=== PATIENT | male | born 1990 | race Caucasian/White ===

== ENCOUNTER 2024-11-25 14:06 | Inpatient (IN) | payer MEDICAID, OTHER ==
[~2024-11-25] VITALS: Ht 177.8 cm; Wt 98.9 kg
--- NOTE | 2024-11-25 14:47 | ED.PDOC ---
History of Present Illness HPI Comments Mr. Odell is a 34 year old male with no previous medical history, who presents today complaint of right arm pain. The patient states that yesterday he was lifting a trash can into the back of his truck when he felt a sudden tear in right bicep. The patient states he immediately had onset of intense bicep pain described as sharp, non-radiating, 10/10 intensity, associated with bicep deformity, and decreased range of motion. He denies any loss of sensation, changes in color of the skin, and continued swelling. The patient was seen at [facility] where an Xray and ultrasound were done showing no signs of tear (patient has presented documents from this encounter). He additi onally states he went [facility] where he had a CT scan of the arm done where he states he was told no tear could be seen either, he does not present documentation of this, and he would need an MRI for further evaluation. On evaluation in the ED, the patient has decreased range of motion, inability to supinate his arm or extend his arm due to pain. Chief Complaint: Upper Extremity Time Seen by MD: 14:14 Primary Care Provider: NONE Allergies: Coded Allergies: NO KNOWN ALLERGIES (Unverified , 10/14/12) Information Source: Patient Mode of Arrival: Ambulatory Severity: Moderate Timing: Days Duration: Since onset Past Medical History PAST MEDICAL HISTORY: Denies Surgical History: Denies all surgeries Family History Family History: Family hx of heart mesha Social History Smoker: Non-Smoker Alcohol: Denies ETOH Use Drugs: Marijuana (Refers he smokes a bowl of marijuana every 2 days) Lives In: Home Constitutional: denies: chills, diaphoresis, fatigue, fever, malaise, sweats, weakness, others EENTM: denies: blurred vision, double vision, ear bleeding, ear discharge, ear drainage, ear pain, ear ringing, eye pain, eye redness, hearing loss, mouth pain, mouth swelling, nasal discharge, nose bleeding, nose congestion, nose pain, photophobia, tearing, throat pain, throat swelling, voice changes, others Respiratory: denies: cough, hemoptysis, orthopnea, SOB at rest, shortness of breath, SOB with excertion, stridor, wheezing, others Cardiovascular: denies: chest pain, dizzy spells, diaphoresis, Dyspnea on exertion, edema, irregular heart beat, left arm pain, lightheadedness, palpitations, PND, syncope, others Gastrointestinal: denies: abdomen distended, abdominal pain, constipated, diarrhea, dysphagia, difficulty swallowing, hematemesis, melena, nausea, poor appetite, poor fluid intake, rectal bleeding, rectal pain, vomiting, others Genitourinary: denies: burning, dysuria, flank pain, frequency, hematuria, incontinence, pain, urgency, others Neurological: denies: dizziness, fainting, headache, left sided numbness, left sided weakness, numbness, paresthesia, pre-existing deficit, right sided numbness, right sided weakness, seizure, speech problems, tingling, tremors, weakness, others Musculoskeletal: reports: muscle pain, muscle stiffness, others (Loss of range of motion, swelling ) Endocrine: denies: excessive hunger, excessive sweating, excessive thirst, excessive urination, flushing, intolerance to cold, intolerance to heat, unexplained weight gain, unexplained weight loss, others Physical Exam General Appearance: Normal HEENT: Normal ENT Inspection, PERRL/EOMI, Pharynx Normal Neck: Full Range of Motion, Non-Tender, Normal Inspection Respiratory: Lungs Clear, No Accessory Muscle Use, No Respiratory Distress, Normal Breath Sounds Cardiovascular: No Edema, No Murmur, No Gallop, Normal Peripheral Pulses, Regular Rate/Rhythm Breast Exam: Deferred Gastrointestinal: No Organomegaly, Non Tender, Normal Bowel Sounds, Soft Genitalia: Deferred Pelvic: Deferred Rectal: Deferred Extremities: Decreased range of motion, Swelling, Tender, Other (Right bicep proximal deformation, pain on palpation, localized swelling, unable to extend right arm, unable to supinate, pain on palpation ) Neurologic: Normal Affect, Normal Mood, No Sensory Deficits Cerebellar Function: NOT DONE Reflexes: NOT DONE Skin: Normal Color Lymphatic: No Adenopathy Was a procedure done? Was a procedure done?: No Differential Dx Considerations may include: Right distal bicep tendon tear, right distal bicep tendonitis, muscle strain, compartment syndrome X-Ray, Labs, Meds, VS Vital Signs Date Time Temp Pulse Resp B/P (MAP) Pulse Ox O2 Delivery O2 Flow Rate FiO2 11/25/24 18:57 93 17 161/103 (122) 98 11/25/24 14:08 98.2 85 18 163/101 98 98.2 Time of 1ST Reevaluation: 18:30 Reevaluation 1ST: Unchanged Patient Education/Counseling: Diagnosis, Treatment Family Education/Counseling: No Family Present SEPSIS Sepsis Screen Date sepsis recognized/suspect: Nov 25, 2024 Time Sepsis recognized/suspect: 1410 Recent Procedure: No On Antibiotic Therapy: No Respiratory Rate >20: No Heart Rate >90: No Temp<36 C (96.8 F) or >38.3 C: No SBP <90 or MAP <65 mmHG: No New Acute Mental Status Change: No Is the patient on CPAP, BIPAP,: No Physician Orders * Orthopedic Consult (11/25/24 15:16) Vital Signs Date Time Temp Pulse Resp B/P (MAP) Pulse Ox O2 Delivery O2 Flow Rate FiO2 11/25/24 18:57 93 17 161/103 (122) 98 11/25/24 14:08 98.2 85 18 163/101 98 98.2 Departure 1 Departure Time of Disposition: 19:50 (The patient presented with right arm pain and deformity concerning for bicep tendon rupture, biceps tendinitis, muscle strain, fracture, compartment syndrome. The patient was evaluated by Orthopedics who recommend admission for possible definitive treatment due to risk of loss of function.) Impression: Primary Impression: Biceps muscle tear Disposition: 30 STILL A PATIENT Admit to: Med Surg Condition: Stable Additional Instructions: The patient presented for severe right arm pain and deformity secondary to lifting a heavy trash can and feeling a rip in his right bicep The patient was seen at [facility] where a ultrasound and x-ray were done that showed no findings, documentation from this visit was reviewed. The patient states he was seen at [facility] where a CT scan of the right arm was performed showing no acute findings, no documentation has been provided for this. The patient was evaluated by Orthopedics who recommended that due to the patient's inability to follow up and risk of losing functionality of his dominant arm if not intervened within the next 10 days, they recommend admission for MRI and definitive treatment. Critical Care Note Critical Care Time?: No Stability Stability form required: ROBIN Barrera RESIDENT Nov 25, 2024 14:47
--- NOTE | 2024-11-25 20:38 | DVHINCON2 ---
Consult Note Consult Consult Note History of Present Illness: The patient presents with a two-day history of acute right elbow pain following lifting a heavy trash can into his truck. He reports feeling a sudden snap sensation at the anterior aspect of the elbow, followed by pain and swelling. He was evaluated in the Emergency Department [place] [facility] , No fracture noted , However he presented to ER due to worsening of Right bicep insertion pain. Reports pain at worse is 10/10 with any supination, Flexion and 5-6/10 at rest. No numbmness/tingling or other joint pain reported by patient. Physical Examination: Inspection: Mild swelling noted over the antecubital fossa. No significant ecchymosis or deformity appreciated. Palpation: Tenderness to palpation at the distal biceps insertion near the radial tuberosity. Mild distal biceps contour defect noted. Strength Testing: Weakness with resisted supination of the forearm. Weakness with resisted elbow flexion on the right side. Special Tests: Hook Test: Distal biceps palpable but mild laxed Biceps Squeeze Test: unable to perform 2/2 pain worsening ROM right elbow grossly intact Neurovascular: Sensation intact throughout the upper extremity. Radial pulse palpable and symmetric. Exam Impression: Findings are consistent with a partial versus complete distal biceps tendon tear. Assessment: Right elbow pain concern for distal biceps tendon rupture (partial vs complet e). Plan: RECS TO ER/INPATIENT TEAM 1. Obtain Right elbow Xray and MRI w/o contrast of the right elbow without contrast to evaluate the integrity of the distal biceps tendon. 2. If MRI confirms a complete distal biceps tendon tear, admit the patient for orthopedic surgical evaluation and management. 3. Continue immobilization in sling and pain control as needed. 4. If patient is admitted Ortho will followup once MRI is completed with treatment plan , Otherwise followup with Orthopedic as Outpatient. 5. Discussed case with block mason Surgeon Dr. Hatch who agrees with plan Plan discussed with: Patient, Other (ER Provider) Visit Coding Surgery Date of Service if different f: Nov 25, 2024 Billing Provider: NATALIYA QUINN Surgery Visit Codes: [id number] - INP CONSULT <55 MIN NATALIYA QUINN Nov 25, 2024 20:38
--- NOTE | 2024-11-25 21:22 | DVH ---
CLINICAL INDICATION: right elbow pain TECHNIQUE: 3 radiographic views of the right elbow were obtained. Comparison: None FINDINGS/IMPRESSION: Limited evaluation right elbow without a 90 degree lateral view. Can not exclude joint effusion. No findings to suggest displaced fractures.
[2024-11-25] MEDS ORDERED: TEMAZEPAM 15 MG CAP PO PRN (23:45)
[2024-11-25] MEDS ORDERED: ONDANSETRON HCL 4 MG/2 ML VIAL IV PRN (23:45)
[2024-11-25] MEDS ORDERED: ACETAMINOPHEN 325 MG TAB PO PRN (23:45)
--- NOTE | 2024-11-25 23:45 | DVHHP2 ---
History of Present Illness Reason for Visit: Right arm pain History of Present Illness 34-year-old male presents for evaluation of right arm pain. Patient reports that yesterday while lifting a trash can onto the back of his truck he felt a sudden tear to his right bicep. Since then he has been having sharp pain whenever he attempts to flex his arm or with minimal movement. Denies tingling or numbness to distal arm. Past Medical History Denies Past Surgical History Denies Family History Heart disease Smoke: No ALCOHOL: none Drugs: Marijuana Lives: with Family Review of Systems Review of Systems Review of systems are currently negative otherwise addressed in HPI. Allergies: Coded Allergies: NO KNOWN ALLERGIES (Unverified , 10/14/12) Exam Vital Signs Vital Signs Date Time Temp Pulse Resp B/P (MAP) Pulse Ox O2 Delivery O2 Flow Rate FiO2 11/25/24 22:06 97.8 79 14 140/101 (114) 98 97.8 Exam Gen: 34-year-old male in mild distress Skin: Warm, dry, normal color and texture, no rash. HEENT: Normocephalic atraumatic, mucous membranes moist and pink. Neck: Cervical and supraclavicular nodes normal without enlargement, trachea is midline, thyroid gland is normal without masses. Pulmonary: Clear to auscultation and percussion bilaterally. Cardiac: Regular rate and rhythm. No murmur Abdomen: Soft, nontender, nondistended, bowel sounds present all 4 quadrants, no guarding, no rigidity, no organomegaly. Extremities: No cyanosis, clubbing, right arm(on a sling, pain on palpation, localized swelling, unable to extend right arm, unable to supinate) Neuro: Cranial nerves II through XII grossly intact, normal affect and speech, no focal motor deficits. Labs/Xrays ORDERING PHYSICIAN: NATALIYA QUINN PAC PROCEDURE(s): RELB3 - R ELBOW 3 VIEW XRAY REASON: right elbow pain ORDER NUMBER(s): [id number], ACCESSION NUMBER(s): [id number] CLINICAL INDICATION: right elbow pain TECHNIQUE: 3 radiographic views of the right elbow were obtained. Comparison: None FINDINGS/IMPRESSION: Limited evaluation right elbow without a 90 degree lateral view. Can not exclude joint effusion. No findings to suggest displaced fractures. IS Sepsis Screen Date sepsis recognized/suspect: Nov 25, 2024 Time Sepsis recognized/suspect: 1410 Recent Procedure: No On Antibiotic Therapy: No Respiratory Rate >20: No Heart Rate >90: No Temp<36 C (96.8 F) or >38.3 C: No SBP <90 or MAP <65 mmHG: No New Acute Mental Status Change: No Is the patient on CPAP, BIPAP,: No Physician Orders R Elbow 3 View Xray (11/25/24 20:39) Mri R Elbow Wo Contrast (11/25/24 20:39) Regular Diet (11/26/24 Breakfast) Ketorolac Injection (Toradol Injection) (11/25/24 23:45) Complete Blood Count (11/25/24 23:38) Comprehensive Metabolic Panel (11/25/24 23:38) PTPTT (11/25/24 23:38) Vital Signs Date Time Temp Pulse Resp B/P (MAP) Pulse Ox O2 Delivery O2 Flow Rate FiO2 11/25/24 22:06 97.8 79 14 140/101 (114) 98 97.8 11/25/24 18:57 93 17 161/103 (122) 98 Assessment/Plan Assessment/Plan Assessment Rule out right biceps muscle tear Plan Admit the patient to [facility] to the hospitalist Orthopedic consultation MRI of the right elbow has been ordered and pending Pain management Continue treatment per orders. Plan discussed with: Patient My Orders Orders - [facility] ORELLANA Procedure Category Date Status Time Regular Diet DIET 11/26/24 Verified Breakfast Ketorolac Injection PHA 11/25/24 Verified (Toradol Injection) 23:45 Complete Blood Count LAB 11/25/24 Verified 23:38 Comprehensive LAB 11/25/24 Verified Metabolic Panel 23:38 PTPTT LAB 11/25/24 Verified 23:38 Date of Service: Nov 25, 2024 Billing Provider: MC ORELLANA Common Visit Codes: [id number] INP/OBS CARE (MOD) MC ORELLANA Nov 25, 2024 23:45
[2024-11-25 23:57] LABS: Hematocrit 43.7 % (41.0-53.0); Hemoglobin 14.8 g/dL (13.5-17.5); Mean Corpuscular Hemoglobin 28.3 pg (28.0-32.0); Mean Corpuscular Volume 83.4 fL (80.0-100.0); Nucleated Red Blood Cells % 0.0 %
[2024-11-26 00:12] LABS: Alkaline Phosphatase 75 U/L (46-116); Anion Gap 9 (5-15); BUN/Creatinine Ratio 16.1 (10.0-20.0); Bilirubin, Total 0.5 mg/dL (0.2-1.0); Blood Urea Nitrogen 18 mg/dL (9-23); Calcium 10.0 mg/dL (8.7-10.4); Carbon Dioxide 30 mmol/L (20-31); Chloride 101 mmol/L (98-107); Glucose 100 mg/dL (74-106); Potassium 4.2 mmol/L (3.5-5.1); Sodium 140 mmol/L (136-145); Total Protein 7.7 g/dL (5.7-8.2)
[2024-11-26 00:14] LABS: Alanine Aminotransferase 45 U/L (7-40); Albumin 5.0 g/dL (3.2-4.8)
[2024-11-26 00:33] LABS: INR 1.11 (0.9-1.15); Partial Thromboplastin Time 26.5 SEC (24.5-34.5); Prothrombin Time 11.6 sec (9.3-11.8)
[2024-11-26] MEDS ORDERED: HYDR-4072 PO (02:11)
[2024-11-26] MEDS ORDERED: IBUP-1456 PO (02:11)
[2024-11-26] MEDS: TEMAZEPAM 15 MG CAP PO ONE (03:11)
[2024-11-26] MEDS: LISINOPRIL 5 MG TAB PO ONE (04:23)
[2024-11-26 05:30] VITALS: BP 111/64; PULSE 68; RESP 19; TEMP 97.6; O2SAT 98
[2024-11-26 08:48] VITALS: BP 126/74; PULSE 72; RESP 18; TEMP 97.7; O2SAT 99
--- NOTE | 2024-11-26 10:04 | DVH ---
EXAM: MRI MRI R ELBOW WO CONTRAST HISTORY: Rule out distal bicep tear. TECHNIQUE: Multiplanar, multisequence MRI of the right elbow was performed without contrast. COMPARISON: XY R ELBOW 3 VIEW XRAY on DOS: 11/25/24 FINDINGS: Joint: There is no elbow joint effusion. There is no synovitis or loose body. Bones and articular cartilage: Bone marrow signal is homogenous and unremarkable. No high-grade artic ular cartilage loss. The alignment is within normal limits. Ligaments and tendons: The ulnar collateral ligament is intact. The radial collateral ligament, later al ulnar collateral ligament (LUCL) and annular ligament are intact. The common flexor tendon and com mon extensor tendon origins are intact. There is a full-thickness retracted distal biceps tendon tear . The torn tendon is retracted 5 cm from the radial tuberosity. Brachioradialis and bicipital tendon s are intact. Nerves: The ulnar nerve is normal in signal intensity and caliber and normally located in the cubital tunnel. The medial and radial nerves are intact. Muscles: Regional musculature is preserved in bulk and signal characteristics. Other findings: Diffus e anterior subcutaneous edema in the elbow. IMPRESSION: 1. Full-thickness retracted distal biceps tendon tear. 2. Diffuse anterior subcutaneous edema in the elbow.
[2024-11-26 13:00] VITALS: BP 120/83; PULSE 71; RESP 17; TEMP 98.1; O2SAT 97
--- NOTE | 2024-11-26 15:27 | DVHPN2 ---
Reviewed: H&P Changes from previous H/P or p: No Changes General: Per HPI Objective Vitals Vital Signs Date Time Temp Pulse Resp B/P (MAP) Pulse Ox O2 Delivery O2 Flow Rate FiO2 11/26/24 13:00 98.1 71 17 120/83 (95) 97 98.1 11/26/24 02:07 Room Air* 0 21 Exam Gen: 34-year-old male in mild distress Skin: Warm, dry, normal color and texture, no rash. HEENT: Normocephalic atraumatic, mucous membranes moist and pink. Neck: Cervical and supraclavicular nodes normal without enlargement, trachea is midline, thyroid gland is normal without masses. Pulmonary: Clear to auscultation and percussion bilaterally. Cardiac: Regular rate and rhythm. No murmur Abdomen: Soft, nontender, nondistended, bowel sounds present all 4 quadrants, no guarding, no rigidity, no organomegaly. Extremities: No cyanosis, clubbing, right arm(on a sling, pain on palpation, localized swelling, unable to extend right arm, unable to supinate) Neuro: Cranial nerves II through XII grossly intact, normal affect and speech, no focal motor deficits. Medications Current Medications Medications Dose Ordered Sig/Vandana Route Start Time Stop Time Status Last Admin Dose Admin Ketorolac Tromethamine 15 mg Q6HPRN PRN IV 11/25/24 23:45 11/30/24 23:44 Acetaminophen/ Hydrocodone Bitart 1 tab Q4HP PRN PO 11/25/24 23:45 Temazepam 15 mg QHSP PRN PO 11/25/24 23:45 Ondansetron HCl 4 mg Q4HP PRN IV 11/25/24 23:45 Acetaminophen 650 mg Q6HP PRN PO 11/25/24 23:45 Laboratory Results Laboratory Tests 11/25/24 23:50 Chemistry Test 11/25/24 23:50 Albumin 5.0 g/dL (3.2-4.8) H Calcium Level 10.0 mg/dL (8.7-10.4) Total Protein 7.7 g/dL (5.7-8.2) Coagulation Test 11/25/24 23:50 Prothrombin Time 11.6 sec (9.3-11.8) Prothrombin Time INR 1.11 (0.9-1.15) Activated Partial Thromboplast Time 26.5 SEC (24.5-34.5) LFT Test 11/25/24 23:50 Alanine Aminotransferase (ALT) 45 U/L (7-40) H Alkaline Phosphatase 75 U/L (46-116) Aspartate Amino Transferase (AST) 31 U/L (13-40) Total Bilirubin 0.5 mg/dL (0.2-1.0) Labs and/or images reviewed: Labs reviewed by me, Image(s) reviewed by me Assessment/Plan Assessment/Plan 34-year-old male presents for evaluation of right arm pain. Patient reports that yesterday while lifting a trash can onto the back of his truck he felt a sudden tear to his right bicep. Since then he has been having sharp pain whenever he attempts to flex his arm or with minimal movement. Denies tingling or numbness to distal arm. 11/26: Patient has been seen by ortho, patient does not smoke, he does drink occasionally up to 8 beers per week, no binge drinking, no history of alcohol withdrawals. No signs of cirrhosis. On exam patient had right biceps and bulging, significant tender to palpation. diagnsis: Right biceps tendon rupture Plan: NPO midnight Ortho following, plan for intervention Pain control Dilaudid IV, prn analgesia Med surge Full code Plan discussed with: Patient Date of Service: Nov 26, 2024 Billing Provider: EVELIA GEORGE MD Common Visit Codes: [id number] INP/OBS CARE(HIGH) EVELIA GEORGE MD Nov 26, 2024 15:27
[2024-11-26 17:00] VITALS: BP 126/86; PULSE 75; RESP 18; TEMP 97.9; O2SAT 99
[2024-11-26] MEDS: HYDROcodone-ACET 5/325MG TAB PO PRN (17:05)
[2024-11-26 20:00] VITALS: RESP 16; O2SAT 98
[2024-11-26 21:00] VITALS: BP 134/90; PULSE 69; RESP 16; TEMP 97; O2SAT 98
--- NOTE | 2024-11-26 21:45 | DVHPN2 ---
Progress Note Progress Note Subjective: Patient was evaluated today for follow-up of right distal biceps tendon tear. He was initially seen yesterday for the same complaint, currently inpatient. The patient continues to report localized pain and weakness with forearm supination and elbow flexion. No new trauma or additional complaints reported.MRI was completed today right Elbow. Objective: General: Patient alert, oriented, resting comfortably in bed. Right Upper Extremity: Visible mild swelling and localized tenderness to palpation over the distal biceps insertion near the radial tuberosity. Positive weakness with elbow flexion and forearm supination compared to the contralateral side. Positive hook test equivocal Positive reverse Caden deformity with proximal retraction of biceps muscle belly. No erythema, ecchymosis, or open skin lesion noted. Distal neurovascular exam intact; capillary refill <2 seconds. Sensation intact to light touch in radial, ulnar, and median nerve distributions. Imaging Reviewed: MRI (Right Elbow): Complete tear of the distal biceps tendon with retraction. X-ray (Right Elbow): No acute fracture or dislocation noted. Assessment: Complete right distal biceps tendon rupture. Plan: 1. Surgical Plan: Proceed with open repair of the right distal biceps tendon using Arthrex button fixation, scheduled for tomorrow with Dr. Hatch @1200 2. Preoperative Instructions: NPO after midnight. Consent obtained for surgical intervention; risks, benefits, and alternatives discussed with the patient. 3. Pain Management: Continue multimodal pain regimen per inpatient protocol. 4. Activity: Right upper extremity to remain immobilized; nonweight-bearing until postoperative evaluation. Currently in Sling 5. Follow-up: Orthopedic team to evaluate patient postoperatively. 6. Discussion: All questions were answered. The patient verbalized understanding and agreement with the surgical plan Plan discussed with: Patient, Other (bedside nurse) Visit Coding Surgery Date of Service if different f: Nov 26, 2024 Billing Provider: NATALIYA QUINN Surgery Visit Codes: [id number] - INP CONSULT <55 MIN NATALIYA QUINN Nov 26, 2024 21:45
[2024-11-26 21:50] LABS: INR 1.09 (0.9-1.15); Partial Thromboplastin Time 27.0 SEC (24.5-34.5); Prothrombin Time 11.5 sec (9.3-11.8)
--- NOTE | 2024-11-26 22:17 | DVH ---
CHEST RADIOGRAPH Indication: Pre op Technique: Single frontal view of the chest was obtained Comparison: None FINDINGS: Lines and Tubes: None Lungs: No focal consolidation. Pleura: No effusion. No pneumothorax. Cardiomediastinal contours: Unremarkable Bones: No acute osseous abnormality. IMPRESSION: 1. No acute cardiopulmonary disease.
[2024-11-26] MEDS: LACTULOSE 20Gm/30ML SOLN PO ONE (22:54)
[2024-11-27] VITALS (7 sets, daily range): BP systolic 127–160; BP diastolic 81–100; PULSE 61–95; RESP 11–18; TEMP 97.6–99; O2SAT 97–99
[2024-11-27 02:32] LABS: Urine Amorphous Crystal FEW /hpf (None Seen); Urine Protein, UAD Negative (Negative)
[2024-11-27 08:44] LABS: Hematocrit 40.2 % (41.0-53.0); Hemoglobin 13.7 g/dL (13.5-17.5); Mean Corpuscular Hemoglobin 28.6 pg (28.0-32.0); Mean Corpuscular Volume 83.9 fL (80.0-100.0); Nucleated Red Blood Cells % 0.2 %
[2024-11-27 11:17] LABS: Chloride 108 mmol/L (98-107); Potassium 4.5 mmol/L (3.5-5.1); Sodium 140 mmol/L (136-145)
[2024-11-27 11:26] LABS: BUN/Creatinine Ratio 14.6 (10.0-20.0)
[2024-11-27] MEDS ORDERED: GLYCOPYRROLATE 0.2 MG/ML 1ML VIAL ONE (11:29)
[2024-11-27] MEDS ORDERED: ROCURONIUM 10MG/ML 10ML VIAL IV ONE (11:29)
[2024-11-27] MEDS ORDERED: PROPOFOL 10 MG/ML 20 ML IV ONE (11:29)
[2024-11-27 11:30] LABS: Alanine Aminotransferase 34 U/L (7-40); Alkaline Phosphatase 61 U/L (46-116); Anion Gap 12 (5-15); Blood Urea Nitrogen 12 mg/dL (9-23); Calcium 9.0 mg/dL (8.7-10.4); Glucose 92 mg/dL (74-106)
[2024-11-27] MEDS ORDERED: ONDANSETRON HCL 4 MG/2 ML VIAL ONE (11:32)
[2024-11-27] MEDS ORDERED: KETAMINE 50mg/ML 1ml syringe ONE (11:32)
[2024-11-27] MEDS ORDERED: fentaNYL CITRATE 100 MCG/2 ML VL ONE (11:32)
[2024-11-27] MEDS ORDERED: KETOROLAC TROMETH 30 MG/ML 1ML VIAL ONE (11:32)
[2024-11-27] MEDS ORDERED: LIDOCAINE 2%HCL (LOCAL ANESTH.) INJ 20ML MDV ONE ×2 (11:32→12:46)
[2024-11-27] MEDS ORDERED: SUGAMMADEX 200mg/2ml Vial (100MG/ML) IV ONE (11:32)
[2024-11-27 11:36] LABS: Bilirubin, Total 0.4 mg/dL (0.2-1.0); Carbon Dioxide 20 mmol/L (20-31)
[2024-11-27 11:37] LABS: Albumin 4.3 g/dL (3.2-4.8); Total Protein 6.7 g/dL (5.7-8.2)
[2024-11-27] MEDS: GABAPENTIN 300 MG CAP PO ONE (11:45)
[2024-11-27] MEDS: ACETAMINOPHEN IV 1000 MG/100ML (10MG/ML) IV ONE (11:45)
[2024-11-27] MEDS: CELECOXIB 100 MG CAP PO ONE (11:45)
[2024-11-27] MEDS: GABAPENTIN 300 MG CAP ONE (11:48)
[2024-11-27] MEDS: ACETAMINOPHEN IV 100 ML IV ONE (11:48)
[2024-11-27] MEDS: ceFAZolin 2 GM/D5W50ml 50 ML IV ONE (11:48)
[2024-11-27] MEDS: CELECOXIB 100 MG CAP ONE (11:48)
--- NOTE | 2024-11-27 12:09 | DVHPN2 ---
Reviewed: H&P Changes from previous H/P or p: No Changes General: Per HPI Objective Vitals Vital Signs Date Time Temp Pulse Resp B/P (MAP) Pulse Ox O2 Delivery O2 Flow Rate FiO2 11/27/24 09:00 99.0 67 18 135/83 (100) 99 99.0 11/27/24 08:00 Room Air* 0 21 Intake/Output Intake and Output 11/27/24 07:00 Intake Total 360 ml Balance 360 ml Intake Oral 360 ml # Voids 3 Exam Gen: 34-year-old male in mild distress Skin: Warm, dry, normal color and texture, no rash. HEENT: Normocephalic atraumatic, mucous membranes moist and pink. Neck: Cervical and supraclavicular nodes normal without enlargement, trachea is midline, thyroid gland is normal without masses. Pulmonary: Clear to auscultation and percussion bilaterally. Cardiac: Regular rate and rhythm. No murmur Abdomen: Soft, nontender, nondistended, bowel sounds present all 4 quadrants, no guarding, no rigidity, no organomegaly. Extremities: No cyanosis, clubbing, right arm(on a sling, pain on palpation, localized swelling, unable to extend right arm, unable to supinate) Neuro: Cranial nerves II through XII grossly intact, normal affect and speech, no focal motor deficits. Medications Current Medications Medications Dose Ordered Sig/Vandana Route Start Time Stop Time Status Last Admin Dose Admin Ketorolac Tromethamine 15 mg Q6HPRN PRN IV 11/25/24 23:45 11/30/24 23:44 Acetaminophen/ Hydrocodone Bitart 1 tab Q4HP PRN PO 11/25/24 23:45 11/26/24 17:05 1 TAB Temazepam 15 mg QHSP PRN PO 11/25/24 23:45 Ondansetron HCl 4 mg Q4HP PRN IV 11/25/24 23:45 Acetaminophen 650 mg Q6HP PRN PO 11/25/24 23:45 Laboratory Results Laboratory Tests 11/27/24 07:56 Chemistry Test 11/27/24 07:56 Albumin 4.3 g/dL (3.2-4.8) Calcium Level 9.0 mg/dL (8.7-10.4) Total Protein 6.7 g/dL (5.7-8.2) Coagulation Test 11/26/24 20:42 Prothrombin Time 11.5 sec (9.3-11.8) Prothrombin Time INR 1.09 (0.9-1.15) Activated Partial Thromboplast Time 27.0 SEC (24.5-34.5) LFT Test 11/27/24 07:56 Alanine Aminotransferase (ALT) 34 U/L (7-40) Alkaline Phosphatase 61 U/L (46-116) Aspartate Amino Transferase (AST) 26 U/L (13-40) Total Bilirubin 0.4 mg/dL (0.2-1.0) Urinalysis Test 11/27/24 02:00 Urine Color Light-yellow (Yellow) Urine Clarity Clear (Clear) Urine pH 6.5 (5.0-9.0) Urine Specific [place] 1.021 (1.001-1.035) Urine Protein Negative (Negative) Urine Ketones Negative (Negative) Urine Blood Negative /uL (Negative) Urine Nitrite Negative (Negative) Urine Bilirubin Negative (Negative) Urine Urobilinogen Normal mg/dL (Negative) Urine Leukocyte Esterase Negative /uL (Negative) Urine RBC None seen /hpf (0 - 3) Urine Microscopic WBC 1 /HPF (0-3) Urine Squamous Epithelial Cells None seen /hpf (<5) Urine Amorphous Crystals Few /hpf (None Seen) Urine Bacteria None seen /hpf (None Seen) Urine Glucose Normal mg/dL (Normal) Labs and/or images reviewed: Labs reviewed by me, Image(s) reviewed by me Assessment/Plan Assessment/Plan 34-year-old male presents for evaluation of right arm pain. Patient reports that yesterday while lifting a trash can onto the back of his truck he felt a sudden tear to his right bicep. Since then he has been having sharp pain whenever he attempts to flex his arm or with minimal movement. Denies tingling or numbness to distal arm. 11/26: Patient has been seen by ortho, patient does not smoke, he does drink occasionally up to 8 beers per week, no binge drinking, no history of alcohol withdrawals. No signs of cirrhosis. On exam patient had right biceps and bulging, significant tender to palpation. 11/27: Patient going to OR today at noon for repair biceps tendon. We will resume regular diet thereafter. diagnsis: Right biceps tendon rupture Plan: NPO midnight Ortho following, plan for intervention Pain control Dilaudid IV, prn analgesia Med surge Full code Plan discussed with: Patient Date of Service: Nov 27, 2024 Billing Provider: EVELIA GEORGE MD Common Visit Codes: [id number] INP/OBS CARE(HIGH) EVELIA GEORGE MD Nov 27, 2024 12:09
[2024-11-27] MEDS: BUPIVACAINE 0.5% P/F INJ 10 ML VIAL ONE (12:34)
--- NOTE | 2024-11-27 13:17 | DVHOP2 ---
Operative Report - 2 Report Details Date: 11/27/24 Preop Diagnosis: Right distal biceps tear Postop Diagnosis: Right distal biceps tear Surgeon: Luis Hatch MD Fermenter: Mike Arnold Physician Fermenter Anesthesiologist: Nirmal Sunshine CRNA Anesthesia: General Implant: Arthrex suture button x1 Consent: The patient was informed of the risks and benefits of the procedure. These include but are not limited to complications of anesthesia, postoperative infection, incomplete relief of symptoms, recurrence of symptoms, damage to bloo d vessels, nerves and tendons, deep venous thrombosis, pulmonary embolism and possible need for repeat surgery in the future. Complications: None Estimated Blood Loss: Less than 10 mL Indications for Surgery: The patient is a 34-year-old male who presented to the emergency room with a history of injury to the right elbow. Clinical and radiological evaluation demonstrated a distal biceps tear. Nonoperative and operative management options were discussed. The patient wanted surgical option to fix the biceps. Benefits, risks and treatment alternatives were discussed. Specific complications of the surgery such as neurovascular injury, especially the posterior interosseous nerve, infection, loss of limb or life were discussed. Heterotopic ossification was discussed. He decided to proceed with the surgical option. Name of Procedure Performed Right distal biceps repair Procedure Details Procedure Details: The patient was identified in the preoperative holding area and the surgical site was marked. The consent was verified. He was brought into the operating room and placed supine on the operating table. General anesthesia was administered. Intravenous antibiotics were given. The extremity was prepped and draped in the usual sterile manner. A time-out was called to confirm that anterior patient, the nature of surgery, the site of surgery, the availability of implants and x-rays and allergies to medications. An incision was made with the radial tuberosity. The skin and the subcutaneous tissue were dissected. The deep fascia was incised. The brachioradialis muscle was retracted the radial tuberosity was exposed. All the critical neurovascular structures were exposed. Then I proceeded with identifying the distal biceps tendon. This was a clearly identified in the distal part portion of the arm. This was whipstitched. The diameter was 7 mm. The radial tuberosity was now clearly exposed. C-arm images were obtained to confirm. Next a guide pin was inserted unicortically. Next a 7 mm Reamer was inserted on top of it unicortically as well. Next the guide pin was inserted again bicortically this time. The button was now mounted on the distal biceps and inserted and flipped. C-arm images were obtained to confirm that the button had flipped. The sutures were now p ulled through the button to bring the distal biceps through the tunnel. This was brought in without any undue tension. The arm could be brought into near full extension without any significant tension on the distal biceps. Then suture from the button was whip stitched around the distal biceps and multiple knots were tied for additional fixation. The tourniquet was released and hemostasis was achieved. The skin was closed in 2-0 Vicryl and 3-0 Monocryl. Sterile dressing was applied. The patient was placed in a posterior long-arm splint. Disposition: Good, the patient was extubated and taken to the recovery without any complication Plan: Stay in the sling and splint at all times. Follow up in two weeks for wound check Condition Good Disposition Home LUIS HATCH MD Nov 27, 2024 13:17
[2024-11-27] MEDS ORDERED: HYDR-4798 PO (13:28)
[2024-11-27] MEDS ORDERED: ASPI81CH74 PO (13:28)
[2024-11-27] MEDS ORDERED: CEPH500T PO (13:28)
[2024-11-27] MEDS ORDERED: hydrALAZINE HCL 20 MG/ML VL IV PRN (13:30)
[2024-11-27] MEDS ORDERED: HYDROmorphone HCL 2 MG/ML VL/or syr IV PRN (13:30)
[2024-11-27] MEDS ORDERED: FLUMAZENIL 0.1 MG/ML INJ 10ML MDV IV PRN (13:30)
[2024-11-27] MEDS ORDERED: NALOXONE HCL 0.4 MG/ML VIAL IV PRN (13:30)
[2024-11-27] MEDS ORDERED: ONDANSETRON HCL 4 MG/2 ML VIAL IV PRN (13:30)
[2024-11-27] MEDS ORDERED: fentaNYL CITRATE 100 MCG/2 ML VL IV PRN (13:30)
--- NOTE | 2024-11-27 13:33 | DVHDS2 ---
Discharge Summary Date of Admission Nov 25, 2024 at 23:38 Date of Discharge: Nov 27, 2024 Labs/Diagnostic Data: Laboratory Results Test 11/27/24 07:56 11/27/24 02:00 11/26/24 20:42 White Blood Count 6.4 10^3/uL (4.4-10.8) Red Blood Count 4.79 10^6/uL (4.5-5.90) Hemoglobin 13.7 g/dL (13.5-17.5) Hematocrit 40.2 % (41.0-53.0) Mean Corpuscular Volume 83.9 fL (80.0-100.0) Mean Corpuscular Hemoglobin 28.6 pg (28.0-32.0) Mean Corpuscular Hemoglobin Concent 34.0 g/dL (32.0-36.0) Red Cell Distribution Width 13.2 % (11.8-14.3) Platelet Count 242 10^3/uL (140-450) Mean Platelet Volume 7.2 fL (6.9-10.8) Neutrophils (%) (Auto) 52.6 % (37.0-80.0) Lymphocytes (%) (Auto) 33.9 % (10.0-50.0) Monocytes (%) (Auto) 7.0 % (0.0-12.0) Eosinophils (%) (Auto) 5.7 % (0.0-7.0) Basophils (%) (Auto) 0.8 % (0.0-2.0) Neutrophils # (Auto) 3.4 10 ^3/uL (1.6-8.6) Lymphocytes # (Auto) 2.2 10 ^3/uL (0.4-5.4) Monocytes # (Auto) 0.5 10 ^3/uL (0-1.3) Eosinophils # (Auto) 0.4 10 ^3/uL (0-0.8) Basophils # (Auto) 0.1 10 ^3/uL (0-0.2) Nucleated Red Blood Cells 0.2 % Sodium Level 140 mmol/L (136-145) Potassium Level 4.5 mmol/L (3.5-5.1) Chloride Level 108 mmol/L (98-107) Carbon Dioxide Level 20 mmol/L (20-31) Anion Gap 12 (5-15) Blood Urea Nitrogen 12 mg/dL (9-23) Creatinine 0.82 mg/dL (0.700-1.30) Glomerular Filtration Rate Calc 119 mL/min (>90) BUN/Creatinine Ratio 14.6 (10.0-20.0) Serum Glucose 92 mg/dL (74-106) Calcium Level 9.0 mg/dL (8.7-10.4) Total Bilirubin 0.4 mg/dL (0.2-1.0) Aspartate Amino Transferase (AST) 26 U/L (13-40) Alanine Aminotransferase (ALT) 34 U/L (7-40) Alkaline Phosphatase 61 U/L (46-116) Total Protein 6.7 g/dL (5.7-8.2) Albumin 4.3 g/dL (3.2-4.8) Urine Color Light-yellow (Yellow) Urine Clarity Clear (Clear) Urine pH 6.5 (5.0-9.0) Urine Specific [place] 1.021 (1.001-1.035) Urine Protein Negative (Negative) Urine Ketones Negative (Negative) Urine Blood Negative /uL (Negative) Urine Nitrite Negative (Negative) Urine Bilirubin Negative (Negative) Urine Urobilinogen Normal mg/dL (Negative) Urine Leukocyte Esterase Negative /uL (Negative) Urine RBC None seen /hpf (0 - 3) Urine Microscopic WBC 1 /HPF (0-3) Urine Squamous Epithelial Cells None seen /hpf (<5) Urine Amorphous Crystals Few /hpf (None Seen) Urine Bacteria None seen /hpf (None Seen) Urine Glucose Normal mg/dL (Normal) Prothrombin Time 11.5 sec (9.3-11.8) Prothrombin Time INR 1.09 (0.9-1.15) Activated Partial Thromboplast Time 27.0 SEC (24.5-34.5) Other Laboratory Tests 11/27/24 07:56 Brief Hx & Hospital Course: Patient was brought to the hospital two days ago after trying to lift a heavy trash can into his truck and feeling a sudden snap to the anterior aspect of his elbow followed by pain and swelling and difficulty moving his arm. Patient was evaluated and found to have a distal biceps tear and was admitted in order to proceed with a distal biceps tendon repair which he tolerated well without complications. We placed the patient in a posterior long-arm splint and placed him in a sling and advised him to remain in his splint and sling for two weeks until he sees his for his 1st postoperative evaluation in 10-14 days. Patient to be discharged home once awake and stable. Condition at Discharge: Good Final Diagnosis/Problems List Right distal biceps tear Discharge Disposition: Home Discharge Instruct/Medications Diet: Regular Activity: See Comment Activity comment: Patient to remain in posterior long arm splint and sling at all times. Follow Up/Referral: Patient to follow up with our office in 10-14 days for his first postoperative evaluation. Medications: Cephalexin 500mg Aspirin 81mg Biggers 10/325 Scheduled Aspirin (Aspirin 81 Low Dose), 81 MG PO BID Cephalexin Monohydrate (Cephalexin), 1 TAB PO TID Hydrocodone-Acetaminophen (Hydrocodone Bitartrate/AC 10-325 mg), 1 TAB PO Q6HR Scheduled PRN Hydrocodone-Acetaminophen (Hydrocodone/Acetaminophen 10-325 mg), 1 TAB PO Q6HP PRN for PAIN SCALE 7 THRU 10, (Reported) Ibuprofen (Ibuprofen), 800 MG PO for PAIN SCALE 1 THRU 6, (Reported) Discharge Statement: "Patient was advised to return to the ER or call 911 if any headaches, dizziness, shortness of breath, chest pain, abdominal pain, bleeding, fevers, or worsening of medical condition. Patient was counseled about treatment plan, medications, possible side effects, patientverbalized understanding. All questions were answered to the best of my ability. This discharge took greater then 30 minutes in planning, reviewing documentation, counseling the patient, and discussing with other team members." ASSESSMENT ASSESSMENT Assessment Right distal biceps tear DUGLAS WELCH Nov 27, 2024 13:33
--- NOTE | 2024-11-27 13:56 | DVH ---
FLUOROSCOPY TIME: 12.3 seconds TECHNIQUE: Intraoperative radiographs of the right forearm were obtained. COMPARISON: MRI MRI R ELBOW WO CONTRAST on DOS: 11/26/24, XY R ELBOW 3 VIEW XRAY on DOS: 11/25/24, CT UPPER EXT RIGHT on DOS: 11/25/24, US EXTREMITY NON VASC LMTD on DOS: 11/24/24, RIGHT XR HUMERUS on D OS: 11/24/24 FINDINGS: Refer to intraoperative report for further evaluation. IMPRESSION: Refer to intraoperative report for further evaluation.
[2024-11-27] MEDS: KETOROLAC TROMETH 30 MG/ML 1ML VIAL IV PRN (14:36)
== END 2024-11-27 16:17 | disposition home or self-care (01) | DRG 317 ==
LOC: ER 14:11 → OVERFLOW 23:38 → WEST WING 11-26 12:53
PROVIDERS: ADMIT Student in an Organized Health Care Education/Training Program; ATTEND Student in an Organized Health Care Education/Training Program
PROC: 0LS30ZZ Reposition Right Upper Arm Tendon, Open Approach (ICD-10-PCS; principal; 2024-11-27 11:53)
DX: S46.211A Strain of muscle, fascia and tendon of other parts of biceps, right arm, initial encounter (principal); F12.90 Cannabis use, unspecified, uncomplicated; X50.0XXA Overexertion from strenuous movement or load, initial encounter; Y93.89 Activity, other specified; Y92.89 Other specified places as the place of occurrence of the external cause; Y99.8 Other external cause status; Z82.49 Family history of ischemic heart disease and other diseases of the circulatory system
CPT/HCPCS: 36415; 71045; 73080; 73090; 73218; 76000; 80053; 81001; 85025; 85610; 85730; 86850; 86900; 86901; G0378; J0131; J1100; J1885; J2405; J2704; J3490